=== PATIENT | female | born 1950 | race African-American/Black ===

== ENCOUNTER 2019-02-10 10:10 | Day surgery (SDC) | payer MEDICARE, BC ==
[~2019-02-10] VITALS: Ht 167.6 cm; Wt 64.9 kg
[~2019-02-10 10:10] MED LIST: LACTATED RINGERS 1,000 ML IV SCH
[2019-02-10 11:27] LABS: BASOPHILS % 1.4 % (0.0-2.0); EOSINOPHILS % 5.4 % (0.0-5.0); HEMATOCRIT. 40.8 % (36.0-48.0); HEMOGLOBIN. 13.7 g/dL (12.0-16.0); LYMPHOCYTES % 40.3 % (20.0-50.0); MEAN CORPUSCULAR VOLUME 92.2 fL (81.0-99.0); MEAN PLATELET VOLUME 7.2 fl (7.4-10.4); MONOCYTES % 10.5 % (2.0-8.0); NEUTROPHILS % 42.4 % (40.0-76.0); PLATELET 409 x1000/uL (130-400); RED BLOOD CELL COUNT 4.43 mill/uL (4.2-5.4); RED CELL DISTRIBUTION WIDTH 13.5 % (11.6-14.6)
[2019-02-10 11:33] LABS: CHLORIDE 105 mEq/L (98-107)
[2019-02-10 11:39] LABS: CLARITY URINE CLEAR (CLEAR); COLOR URINE YELLOW (YELLOW); KETONES URINE NEGATIVE (NEGATIVE); LEUKOCYTE ESTERASE URINE NEGATIVE (NEGATIVE); NITRITE URINE NEGATIVE (NEGATIVE); OCCULT BLOOD URINE NEGATIVE (NEGATIVE); PROTEIN URINE NEGATIVE (NEGATIVE); UROBILINOGEN URINE 0.2 E.U./dL (0.2-1.0)
[2019-02-10] MEDS ORDERED: ASPI-1160 PO (12:10)
[2019-02-10] MEDS ORDERED: ALBU18HF2 IH (12:10)
[2019-02-10] MEDS ORDERED: PROPOFOL 10MG/ML 100ML 100 ML IV ONE (13:10)
[2019-02-10] MEDS ORDERED: FENTANYL CITRATE/PF 50MCG/ML 2ML VIAL ONE (13:16)
[2019-02-10] MEDS ORDERED: MIDAZOLAM HCL 2 MG/2 ML VIAL ONE (13:16)
[2019-02-10] MEDS ORDERED: KETOROLAC 30MG/ML VIAL IV ONE (14:30)
[2019-02-10] MEDS ORDERED: FENTANYL CITRATE/PF 50MCG/ML 2ML VIAL IV PRN (14:30)
[2019-02-10] MEDS ORDERED: ONDANSETRON HCL 4MG/2ML INJ IV ONE (14:30)
== END 2019-02-10 15:40 | disposition home or self-care (01) ==
LOC: OR 10:10
PROVIDERS: ATTEND Obstetrics & Gynecology Obstetrics
DX: N92.1 Excessive and frequent menstruation with irregular cycle (principal); N84.0 Polyp of corpus uteri; M48.02 Spinal stenosis, cervical region; Z82.49 Family history of ischemic heart disease and other diseases of the circulatory system; Z83.3 Family history of diabetes mellitus; Z88.5 Allergy status to narcotic agent; Z98.890 Other specified postprocedural states; Z79.82 Long term (current) use of aspirin; Z79.899 Other long term (current) drug therapy; Z98.51 Tubal ligation status
CPT/HCPCS: 36415; 58120; 80053; 81003; 85025; 88305; 93005; J2704; J3010; J2250